=== PATIENT | female | born 1975 | race Caucasian/White ===

== ENCOUNTER → 2018-08-14 | Outpatient (CLI) | payer BC ==
--- NOTE | 2018-08-14 16:30 | KCIC ---
Esophagram 08/14/2018 CLINICAL HISTORY: Dysphagia. Patient has had difficulty swallowing for the last 3-4 months. TECHNIQUE: An esophagram was performed under fluoroscopic control. The total fluoroscopic time is 2 minutes 19 seconds. 6 digital spot radiographs were obtained. FINDINGS: The swallowing mechanism is within normal limits. No penetration or aspiration is seen. The mucosal pattern of the hypopharynx, esophagus and GE junction is within normal limits. The patient is able to swallow a barium coated tablet without difficulty. The tablet is noted to reflux from the stomach back into the inferior thoracic esophagus during the course of this examination. Tertiary contractions of esophagus are seen consistent with mild esophageal dysmotility. Mild gastroesophageal reflux is seen to the level of the inferior/mid thoracic esophagus. IMPRESSION: 1. Mild esophageal dysmotility. 2. Mild gastroesophageal reflux. 3. Otherwise negative study. Electronically signed by: Fernando Smith MD (08/14/2018 4:27 PM) [id number]
== END | disposition home or self-care (01) ==
LOC: KCIC 12:28
PROVIDERS: ATTEND Physician Assistant
DX: K21.9 Gastro-esophageal reflux disease without esophagitis (principal); K22.4 Dyskinesia of esophagus
CPT/HCPCS: 74220